=== PATIENT | male | born 1950 | race Caucasian/White ===

== ENCOUNTER 2017-09-13 18:35 | Inpatient (IN) | payer MEDICARE ==
[~2017-09-13] VITALS: Ht 182.9 cm; Wt 92.0 kg
[~2017-09-13 18:35] MED LIST: AMLO-512 PO; ASPI-556 PO; CYCL10TA7 PO; HYDR12.530 PO; LEVE500T53 PO; LISI-661 PO; MIRT30 PO; SALS500T16 PO
[2017-09-13] MEDS ORDERED: SODIUM CHLORIDE 0.9% 1,000 ML IV ONE ×2 (19:30→20:15)
[2017-09-13 19:46] LABS: BASOPHILS # (AUTO) 0.05 K/uL (0.00-0.20); BASOPHILS % (AUTO) 0.3 % (0.0-2.0); EOSINOPHILS # (AUTO) 0.04 K/uL (0.00-0.70); EOSINOPHILS % (AUTO) 0.24 % (1.0-6.0); HEMATOCRIT 36.9 % (41-53); HEMOGLOBIN 12.3 g/dL (13.5-17.5); LYMPHOCYTES # (AUTO) 0.9 K/uL (1.0-4.8); LYMPHOCYTES % (AUTO) 5.7 % (22.0-44.0); MEAN CORPUSCULAR HEMOGLOBIN 28.3 pg (26.0-34.0); MEAN CORPUSCULAR HGB CONC 33.3 G/dL (31.0-37.0); MEAN CORPUSCULAR VOLUME 85 fL (80-100); MONOCYTES # (AUTO) 0.5 K/uL (0.1-1.0); MONOCYTES % (AUTO) 3.2 % (2.0-9.0); NEUTROPHILS # (AUTO) 14.9 K/uL (1.8-7.7); PLATELET COUNT (AUTO) 382 K/uL (150-450); RED BLOOD CELL COUNT(AUTO) 4.33 MIL/uL (4.50-5.90); RED CELL DISTRIBUTION WIDTH 14.3 % (11.5-14.5)
[2017-09-13 19:48] LABS: NEUTROPHILS % (AUTO) 90.6 % (40.0-70.0)
[2017-09-13 19:57] LABS: ANION GAP 10 mmol/L (8-16); CALCIUM, TOTAL 8.6 mg/dL (8.8-10.5); CARBON DIOXIDE 22 mmol/L (22-29); CHLORIDE 95 mmol/L (98-107); CREATININE 1.24 mg/dL (0.60-1.30); GLOMERULAR FILTR. RATE CALC 58 mL/min (>60); GLUCOSE,RANDOM 118 mg/dL (70-110); POTASSIUM 4.2 mmol/L (3.5-5.1); SODIUM SERUM 127 mmol/L (136-145); UREA NITROGEN, BLOOD 14 mg/dL (7-18)
[2017-09-13 20:03] LABS: ALANINE AMINOTRANSFERASE 27 U/L (12-78); ALBUMIN 2.9 g/dL (3.4-5.0); ALKALINE PHOSPHATASE 64 U/L (46-116); ASPARTATE AMINOTRANSFERASE 28 U/L (15-37); BILIRUBIN,TOTAL 0.4 mg/dL (0.1-1.0); TOTAL PROTEIN, SERUM 8.2 g/dL (6.4-8.2)
[2017-09-13] MEDS ORDERED: BACLOFEN 10 MG TABLET PO ONE (20:15)
[2017-09-13] MEDS ORDERED: ACETAMINOPHEN 325 MG TABLET PO PRN (20:15)
[2017-09-13] MEDS ORDERED: ONDANSETRON HCL 4 MG/2 ML VIAL IVP ONE (20:15)
[2017-09-13] MEDS ORDERED: ONDANSETRON HCL 4 MG/2 ML VIAL IVP PRN (20:15)
[2017-09-13] MEDS ORDERED: 0.9% SODIUM CHLORIDE 10 ML SYRINGE IVP PRN (20:15)
[2017-09-13] MEDS ORDERED: HYDROmorphone 2 MG/ML SYRINGE IVP ONE (20:15)
[2017-09-13] MEDS ORDERED: VANCOMYCIN HCL 1 GM/D5% WATER 200 ML IV ONE (20:15)
[2017-09-13 20:17] LABS: LACTIC ACID 1.2 mmol/L (0.4-2.0)
[2017-09-13 20:55] LABS: APPEARANCE,URINE CLOUDY (CLEAR); BILIRUBIN,URINE NEGATIVE (NEGATIVE); GLUCOSE, URINE (UA) NEGATIVE (NEGATIVE); KETONES,URINE NEGATIVE (NEGATIVE); LEUKOCYTE ESTERASE ,URINE NEGATIVE (NEGATIVE); NITRATE,URINE NEGATIVE (NEGATIVE); OCCULT BLOOD,URINE NEGATIVE (NEGATIVE); PROTEIN,URINE TRACE (NEGATIVE); UROBILINOGEN,URINE 0.2 mg/dL (<=1.0)
[2017-09-13 21:00] LABS: AMPHET/METH SCREEN,URINE NEGATIVE (NEGATIVE); BARBITURATE SCREEN, URINE NEGATIVE (NEGATIVE); BENZODIAZEPINES SCREEN,URINE NEGATIVE (NEGATIVE); CANNABINOID SCREEN,URINE NEGATIVE (NEGATIVE); COCAINE SCREEN,URINE NEGATIVE (NEGATIVE); METHADONE SCREEN, URINE NEGATIVE (NEGATIVE); OPIATE SCREEN,URINE POSITIVE (NEGATIVE)
[2017-09-13 21:02] LABS: PHENCYCLIDINE SCREEN,URINE NEGATIVE (NEGATIVE)
[2017-09-13 21:46] VITALS: BP 147/95
[2017-09-13 22:57] VITALS: BP 132/72
[2017-09-13] MEDS ORDERED: DOCU250C16 PO (23:16)
[2017-09-13] MEDS ORDERED: MIRT45TA4 PO (23:16)
[2017-09-13] MEDS ORDERED: SIMV20TA6 PO (23:16)
[2017-09-13] MEDS ORDERED: AMLO10TA55 PO (23:16)
[2017-09-13] MEDS ORDERED: BACL10TA PO (23:16)
[2017-09-13] MEDS ORDERED: SALS500T16 PO (23:16)
[2017-09-14] MEDS ORDERED: DOCUSATE SODIUM 250 MG CAPSULE PO PRN (00:15)
[2017-09-14] MEDS ORDERED: MORPHINE SULFATE 2 MG/ML SYRINGE IVP PRN (00:30)
[2017-09-14] MEDS ORDERED: ACETAMINOPHEN 325 MG TABLET PO PRN (00:30)
[2017-09-14] MEDS: MIRTAZAPINE 15 MG TABLET PO SCH ×2 (00:58→20:32)
[2017-09-14] MEDS ORDERED: VANCOMYCIN HCL 500 MG in DEXTROSE 5%-WATER 100 ML IV ONE (01:00)
[2017-09-14] MEDS ORDERED: CefTRIAXone 1 GM/DEXTROSE 50 ML IV SCH (01:00)
[2017-09-14] MEDS: HYDROCODONE/ACETAMINOPHEN 5-325 MG TABLET PO PRN ×5 (01:03→19:39)
[2017-09-14] MEDS ORDERED: PNEUMOCOCCAL VACCINE POLYVALENT 0.5 ML VIAL [PPSV23] IM ONE (01:15)
[2017-09-14] MEDS ORDERED: INFLUENZA VIRUS VACCINE QVS 2017-18 (3YR+)/PF 60 MCG/0.5 ML SYRINGE IM ONE (01:15)
[2017-09-14 03:30] VITALS: BP 130/66
[2017-09-14 03:50] LABS: C-REACTIVE PROTEIN QUANT 3.56 mg/dL (0.00-0.30)
[2017-09-14] MEDS: SODIUM CHLORIDE 0.45% 1,000 ML IV SCH ×3 (04:20→23:46)
[2017-09-14 07:50] VITALS: BP 121/67
[2017-09-14] MEDS ORDERED: ENOXAPARIN SODIUM 40 MG/0.4 ML PF SYRINGE SQ SCH (09:00)
[2017-09-14] MEDS ORDERED: AmLODIPine BESYLATE 10 MG TABLET PO SCH (09:00)
[2017-09-14] MEDS: BACLOFEN 10 MG TABLET PO SCH ×3 (09:47→20:32)
[2017-09-14] MEDS: FAMOTIDINE 20 MG TABLET PO SCH ×2 (09:47→20:32)
[2017-09-14] MEDS: VANCOMYCIN HCL 1 GM/D5% WATER 200 ML IV SCH ×2 (09:52→20:33)
[2017-09-14 11:34] VITALS: BP 133/55
[2017-09-14] MEDS ORDERED: GADOBUTROL 1 MMOL/ML 10 ML VIAL IVP ONE (12:27)
[2017-09-14] MEDS: CLINDAMYCIN HCL 300 MG CAPSULE PO SCH ×3 (12:28→23:49)
[2017-09-14] MEDS: PIPERACILLIN/TAZO 3.375 GM/D5W 50 ML IV SCH ×2 (12:28→19:39)
[2017-09-14 13:06] LABS: BASOPHILS % (AUTO) 0.5 % (0.0-2.0); EOSINOPHILS % (AUTO) 1.1 % (1.0-6.0); HEMOGLOBIN 12.2 g/dL (13.5-17.5); LYMPHOCYTES % (AUTO) 13.4 % (22.0-44.0); MEAN CORPUSCULAR HEMOGLOBIN 28.6 pg (26.0-34.0); MEAN CORPUSCULAR HGB CONC 33.8 G/dL (31.0-37.0); MEAN CORPUSCULAR VOLUME 85 fL (80-100); MONOCYTES # (AUTO) 0.7 K/uL (0.1-1.0); MONOCYTES % (AUTO) 8.8 % (2.0-9.0); NEUTROPHILS # (AUTO) 5.9 K/uL (1.8-7.7); NEUTROPHILS % (AUTO) 76.2 % (40.0-70.0); PLATELET COUNT (AUTO) 394 K/uL (150-450); RED BLOOD CELL COUNT(AUTO) 4.25 MIL/uL (4.50-5.90); RED CELL DISTRIBUTION WIDTH 14.2 % (11.5-14.5)
[2017-09-14 13:34] LABS: ANION GAP 9 mmol/L (8-16); CALCIUM, TOTAL 8.4 mg/dL (8.8-10.5); CARBON DIOXIDE 25 mmol/L (22-29); CHLORIDE 100 mmol/L (98-107); CREATININE 0.95 mg/dL (0.60-1.30); GLOMERULAR FILTR. RATE CALC > 60 mL/min (>60); GLUCOSE,RANDOM 137 mg/dL (70-110); POTASSIUM 4.2 mmol/L (3.5-5.1); SODIUM SERUM 134 mmol/L (136-145); UREA NITROGEN, BLOOD 10 mg/dL (7-18)
[2017-09-14] MEDS: LACTOBAC ACID/BULG/BIFID/THERM TABLET PO SCH ×2 (15:13→20:33)
[2017-09-14 16:00] VITALS: BP 145/58
[2017-09-14 20:11] VITALS: BP 134/66
[2017-09-14] MEDS ORDERED: SIMVASTATIN 20 MG TABLET PO SCH (21:00)
[2017-09-14] MEDS ORDERED: LORazepam 1 MG TABLET PO PRN (22:30)
[2017-09-14 23:23] VITALS: BP 98/54
[2017-09-15] MEDS: HYDROCODONE/ACETAMINOPHEN 5-325 MG TABLET PO PRN ×2 (00:53→06:01)
[2017-09-15] MEDS: CLINDAMYCIN HCL 300 MG CAPSULE PO SCH (05:54)
[2017-09-15 06:02] VITALS: BP 138/59
== END 2017-09-15 06:25 | disposition left against medical advice (07) | DRG 872 ==
LOC: EMS 18:38 → 6N 20:17
PROVIDERS: ADMIT Hospitalist; ATTEND Hospitalist
PROC: 3E0234Z Introduction of Serum, Toxoid and Vaccine into Muscle, Percutaneous Approach (ICD-10-PCS; principal; 2017-09-14)
DX: A41.9 Sepsis, unspecified organism (principal); N17.9 Acute kidney failure, unspecified; L03.116 Cellulitis of left lower limb; E87.1 Hypo-osmolality and hyponatremia; Z53.21 Procedure and treatment not carried out due to patient leaving prior to being seen by health care provider; I10 Essential (primary) hypertension; Z59.0 Homelessness; R79.89 Other specified abnormal findings of blood chemistry; Z79.82 Long term (current) use of aspirin; Z79.899 Other long term (current) drug therapy; Z88.1 Allergy status to other antibiotic agents; Z23 Encounter for immunization; E78.00 Pure hypercholesterolemia, unspecified
CPT/HCPCS: 73720; 83605; 85651; 86140; 87040; 87081; 93971; 96365; 96375; 99285; A9585; G0480; J0696; J1170; J1650; J2405; J2543; J3370; J7030; J7060